=== PATIENT | male | born 1965 | race Caucasian/White ===

== ENCOUNTER 2018-06-16 21:35 | Emergency (ER) | END 2018-06-17 02:25 | disposition home or self-care (01) ==

== ENCOUNTER 2018-06-18 19:08 | Emergency (ER) | END 2018-06-19 01:33 | disposition short-term general hospital (02) ==

== ENCOUNTER 2018-06-26 13:51 | Emergency (ER) | END 2018-06-26 16:54 | disposition home or self-care (01) ==

== ENCOUNTER 2018-09-07 14:24 | Emergency (ER) | payer OTHER ==
[~2018-09-07] VITALS: Ht 177.8 cm; Wt 112.3 kg
[~2018-09-07 14:24] MED LIST: ALBU18HF INHALATION; ALPR0.5T6 PO; APIX5TAB PO; CALC-516 PO; DOCU-144 PO; FLUT1AER INHALATION; FURO-110 PO; GABA-526 PO; METH750T2 PO; METO-335 PO; MIRT15TA5 PO; NICO-546 TD; OMEP40CA6 PO; OXYC-431 PO; SIMV20TA PO
[2018-09-07 14:49] VITALS: Ht 177.8 cm; Wt 112.3 kg
[2018-09-07] MEDS ORDERED: HYDROmorphONE 2 MG/ML SYG IV STA (15:27)
[2018-09-07 18:46] VITALS: BP 150/92; PULSE 97; RESP 20
[2018-09-07] MEDS ORDERED: CEPH-443 PO (18:49)
[2018-09-07] MEDS ORDERED: FURO-109 PO (18:49)
--- NOTE | 2018-09-07 18:53 | ERD ---
ER Documentation Chief Complaint Chief Complaint Pt. BIBJarvis RA with c/o bilateral LE pain and swelling ROS All systems reviewed and are negative except as per history of present illness. Medications Home Meds Active Scripts Cephalexin* (Keflex*) 500 Mg Capsule, 500 MG PO QID for 10 Days, CAP Prov:ULI VILLA MD 09/07/18 Furosemide* (Lasix*) 40 Mg Tablet, 40 MG PO DAILY, #10 TAB Prov:ULI VILLA MD 09/07/18 Metoprolol Succinate* (Toprol XL*) 25 Mg Tab.sr.24h, 50 MG PO DAILY for 30 Days Prov:DOLORES CAMPBELL 08/23/18 Oxycodone HCl/Acetaminophen (Oxycodone-Acetaminophen 10-325) 1 Each Tablet, 1 EACH PO Q6 PRN for PAIN, #30 TAB Prov:DOLORES CAMPBELL 08/23/18 Apixaban* (Eliquis*) 5 Mg Tablet, 5 MG PO BID for 30 Days, TAB Prov:DOLORES CAMPBELL 08/23/18 Reported Medications Nicotine* (Nicotine* Patch) 21 mg/day Patch, 1 EACH TD DAILY, PATCH 08/15/18 Methocarbamol* (Methocarbamol*) 750 Mg Tablet, 750 MG PO TID, TAB 08/15/18 Fluticasone-Vilanterol (Breo Ellipta Inhaler) 100-25 Mcg/Actuation Aer.pow.ba, 1 PUFF INHALATION DAILY, #1 INHALER 08/15/18 Calcium Carbonate/Vitamin D3 ([place] SHE[place] CALCIUM TABLET) 1 Each Tablet, 1 EACH PO BID, TAB 06/26/18 Albuterol Sulfate* (Ventolin HFA*) 18 Gm Hfa.aer.ad, 2 PUFF INHALATION Q4H, #1 INHALER 06/26/18 Alprazolam* (Alprazolam*) 0.5 Mg Tablet, 0.5 MG PO Q8H PRN for ANXIETY, TAB 06/26/18 Mirtazapine* (Mirtazapine*) 15 Mg Tablet, 15 MG PO HS, TAB 06/26/18 Omeprazole* (Omeprazole*) 40 Mg Capsule.dr, 40 MG PO DAILY, #30 CAP 12/8/18 Gabapentin* (Gabapentin*) 600 Mg Tablet, 600 MG PO BID, #60 TAB 06/26/18 Docusate Sodium* (Colace*) 100 Mg Capsule, 100 MG PO BID, #60 CAP 06/18/18 Simvastatin* (Zocor*) 20 Mg Tablet, 20 MG PO QHS, #30 TAB 06/18/18 Discontinued Scripts Furosemide* (Lasix*) 20 Mg Tablet, 20 MG PO DAILY, #30 TAB Prov:DOLORES CAMPBELL 08/23/18 Allergies Allergies: Coded Allergies: ciprofloxacin (Verified Allergy, Unknown, 08/15/18) iodine (Verified Allergy, Unknown, 08/15/18) morphine (Unverified Allergy, Unknown, 08/15/18) shellfish derived (Verified Allergy, Unknown, RASH HIVES, 08/15/18) PMhx/Soc History of Surgery: Yes (Herniated lung Jun 03, Stomach surgery to remove adhesions) Anesthesia Reaction: No Hx Neurological Disorder: No Hx Respiratory Disorders: Yes (COPD, PNA) Hx Cardiac Disorders: No Hx Psychiatric Problems: Yes (Depression, Anxiety, PTSD) Hx Miscellaneous Medical Probl: No Hx Alcohol Use: No Hx Substance Use: Yes (coccaine) Hx Tobacco Use: Yes Smoking Status: Current every day smoker Physical Exam Vitals Vital Signs Date Temp Pulse Resp B/P (MAP) Pulse Ox O2 O2 Flow FiO2 Time Delivery Rate 09/07/18 99.0 97 20 150/92 97 Room Air 18:46 (111) 09/07/18 Nasal 2 15:43 Cannula 09/07/18 98.2 99 22 150/89 96 14:49 (109) Physical Exam Const: No acute distress Head: Atraumatic Eyes: Normal Conjunctiva ENT: Normal External Ears, Nose and Mouth. Neck: Full range of motion. No meningismus. Resp: Clear to auscultation bilaterally Cardio: Regular rate and rhythm, no murmurs Abd: Soft, non tender, non distended. Normal bowel sounds Skin: No petechiae or rashes Back: No midline or flank tenderness Ext: No cyanosis, or edema Neur: Awake and alert Psych: Normal Mood and Affect Results 24 hrs Current Medications Medications Dose Sig/Ana Start Time Status Last (Trade) Ordered Route PRN Stop Time Admin Dose Reason Admin 1 mg ONCE STAT 09/07/18 DC 09/07/18 Hydromorphone IV 15:27 18:12 HCl 09/07/18 15:29 (Dilaudid) Departure Diagnosis: Primary Impression: Bilateral lower extremity edema Additional Impression: Bilateral lower leg cellulitis Condition: Stable Patient Instructions: Cellulitis, Peripheral Edema, Bilateral ULI VILLA MD Sep 07, 2018 18:53
[2018-09-07] MEDS ORDERED: HYDR-4011 PO (19:04)
== END 2018-09-07 19:14 | disposition home or self-care (01) ==
LOC: E/R 14:24
DX: L03.115 Cellulitis of right lower limb (principal); R60.0 Localized edema; L03.114 Cellulitis of left upper limb; J44.9 Chronic obstructive pulmonary disease, unspecified; F17.210 Nicotine dependence, cigarettes, uncomplicated
CPT/HCPCS: 71045; 93005; 96374; J1170; Z7502

== ENCOUNTER 2018-09-29 01:32 | Inpatient (IN) | payer OTHER ==
[~2018-09-29] VITALS: Ht 180.3 cm; Wt 115.3 kg
[2018-09-29] VITALS (27 sets, daily range): BP systolic 102–128; BP diastolic 73–87; PULSE 70–85; RESP 18–20; Ht 180.3 cm; Wt 115.3 kg
[~2018-09-29 01:32] MED LIST changes: +CEPH-443 PO; +FURO-109 PO; -FURO-110 PO; +HYDR-4011 PO
[2018-09-29] MEDS ORDERED: PROPOFOL 200 MG INJ ONE (01:58)
[2018-09-29] MEDS ORDERED: PROPOFOL 100 ML IV STA (01:58)
[2018-09-29] MEDS ORDERED: SUCCINYLCHOLINE CHLORIDE 100 MG/5 ML SYG IV STA (01:58)
[2018-09-29] MEDS ORDERED: SUCCINYLCHOLINE CHLORIDE 100 MG/5 ML SYG IV ONE ×2 (01:58→04:00)
[2018-09-29] MEDS ORDERED: SOD CHLORIDE 0.9% 1,000 ML IV STA (01:58)
[2018-09-29] MEDS ORDERED: ETOMIDATE 20 MG INJ ONE (01:58)
[2018-09-29] MEDS ORDERED: ETOMIDATE 20 MG INJ IV STA (01:58)
[2018-09-29] MEDS ORDERED: VECURONIUM 100 MG in DEXTROSE 5% 100 ML IV ONE (03:44)
[2018-09-29] MEDS ORDERED: PRED10TA PO (05:25)
[2018-09-29] MEDS ORDERED: BENZ-5 PO (05:25)
[2018-09-29] MEDS ORDERED: LORA1TAB PO (05:25)
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
[2018-09-29] MEDS ORDERED: VECURONIUM 100 MG in DEXTROSE 5% 100 ML IV SCH (15:30)
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
[2018-09-29] MEDS ORDERED: FAMOTIDINE 20 MG INJ IV SCH (16:00)
[2018-09-29] MEDS: PROPOFOL 100 ML IV SCH ×4 (16:19→22:31)
[2018-09-29] MEDS ORDERED: ONDANSETRON 4 MG INJ IV PRN (17:00)
[2018-09-29] MEDS ORDERED: IPRATROPIUM (NEB) 0.5 MG/2.5 ML AMP NEB PRN (17:00)
[2018-09-29] MEDS ORDERED: NACL 0.9% 3 ML SYG IV SCH (17:00)
[2018-09-29] MEDS ORDERED: ALBUTEROL 0.083% (NEB) 2.5 MG/3 ML AMP NEB PRN (17:00)
[2018-09-29] MEDS ORDERED: ACETAMINOPHEN 650MG/20.3ML CUP PO PRN (17:00)
[2018-09-29] MEDS: THIAMINE 100 MG TAB NGT SCH (17:06)
[2018-09-29] MEDS: CYANOCOBALAMIN 1000 MCG INJ IM SCH (17:07)
[2018-09-29] MEDS: ENOXAPARIN 40 MG/0.4 ML SYG SC SCH (17:08)
[2018-09-29] MEDS: PIPER-TAZO 2.25 GM (PMX) 50 ML IVPB SCH ×2 (17:58→22:29)
[2018-09-29] MEDS: D5W-0.45 NACL + KCL 20 MEQ 1,000 ML IV SCH (19:03)
[2018-09-30] VITALS (29 sets, daily range): BP systolic 67–142; BP diastolic 36–103; PULSE 82–107; RESP 13–23
[2018-09-30] MEDS: PROPOFOL 100 ML IV SCH ×3 (01:04→07:13)
[2018-09-30] MEDS: D5W-0.45 NACL + KCL 20 MEQ 1,000 ML IV SCH ×3 (05:50→18:00)
[2018-09-30] MEDS: PIPER-TAZO 2.25 GM (PMX) 50 ML IVPB SCH (05:51)
[2018-09-30] MEDS ORDERED: PANTOPRAZOLE 40 MG INJ IV SCH (06:00)
--- NOTE | 2018-09-30 07:03 | EEG ---
EEG NOTE Report Details DATE OF TEST: 09/29/18 HISTORY: The patient is a 53-year-old M who presents with altered mental status. This EEG is requested to rule out nonconvulsive status epilepticus. SEDATION: None. CONDITIONS OF RECORDING: This EEG was recorded digitally on the M/A-COM machine, using the International 10-20 System of electrodes plus anterior temporals and [place]. STATES SAMPLED: Comatose. FINDINGS: The background is continuous and grossly symmetric. There is excess beta activity throughout. The normal [id number] frequency-amplitude gradient was absent. Photic stimulation does not elicit any definite driving responses or epileptiform discharges. Hyperventilation was not performed. No asymmetries, focal abnormalities or epileptiform discharges were seen. IMPRESSION: Abnormal electroencephalogram due to: excess beta activity COMMENT: Excess beta activity may be attributable to the use of medications, including but not limited to benzodiazepines or barbiturates. ADDIS PAYNE Sep 30, 2018 07:03
[2018-09-30] MEDS: CYANOCOBALAMIN 1000 MCG INJ IM SCH (08:32)
[2018-09-30] MEDS: THIAMINE 100 MG TAB NGT SCH (08:32)
[2018-09-30] MEDS: ENOXAPARIN 40 MG/0.4 ML SYG SC SCH (08:33)
[2018-09-30] MEDS ORDERED: ENOXAPARIN 40 MG/0.4 ML SYG SC SCH (09:00)
--- NOTE | 2018-09-30 09:40 | CONS ---
Assessment/Plan Assessment/Plan Assessment/Plan (Daily) Chest x-ray was reviewed from today which is essentially unremarkable. Ventilator setting; AC of 18, tidal volume 500, PEEP of 5, 30% FiO2. Patient is currently on propofol 50 mics per kilogram per minute. Assessment and recommendations; 1. Patient admitted with respiratory failure due to multidrug overdose with amphetamines cocaine and benzodiazepines. Patient has remained hemodynamically stable. 2. Prior history of laparotomy as well as lower extremity cellulitis. 3. Chronic pain syndrome. 4. COPD. 5. Currently there is no evidence to indicate any ongoing infective process. Hold propofol. Give the patient to CPAP trial. If the patient meets weaning criteria he will be extubated. Meanwhile I would recommend stopping Zosyn. Repeat chest x-ray 24 hours. 35 minutes of critical care time was spent evaluating the patient. Consultation Date/Type/Reason Admit Date/Time Sep 29, 2018 at 04:27 Initial Consult Date 09/29/18 Type of Consult Pulmonary/critical care Patient is a 52-year-old male who was [facility] with altered mental status. Patient apparently took overdose of multiple medications including amphetamines benzodiazepines and cocaine. Patient was intubated and transferred to ICU. By the time I saw the patient over here the patient is orally intubated sedated and paralyzed. Patient has remained hemodynamically stable and did not require CPR. Past medical history; 1. COPD. 2. History of lower extremity cellulitis. 3. History of laparotomy. Medications; reviewed. Allergies; as outlined above. Social history; positive for tobacco abuse, and multiple drug abuse. Family history, occupational history not available. Review of system; unable to be obtained. General exam; middle-aged male, appears overweight, orally intubated, sedated and paralyzed. Requesting Provider: DOLORES CAMPEBLL Date/Time of Note DATE: 09/30/18 TIME: 09:37 24 HR Interval Summary Free Text/Dictation Patient's condition is critical but stable. Despite being on propofol drip patient is completely awake and alert. Has remained hemodynamically stable. General exam; middle-aged male, orally intubated, awake and alert. Currently no distress. Appropriately communicative with hand gestures. Exam/Review of Systems Exam Vitals Vital Signs Date Temp Pulse Resp B/P (MAP) Pulse Ox O2 O2 Flow FiO2 Time Delivery Rate 09/30/18 94 19 142/81 99 Mechanical 09:00 (101) Ventilator 09/30/18 35 07:47 09/30/18 98.3 04:00 Intake and Output 09/29/18 09/29/18 09/30/18 1515:00 23:00 07:00 IntakeIntake Total 102 ml 730.18 ml 892.13 ml OutputOutput Total 450 ml 1150 ml 995 ml BalanceBalance -348 ml -419.82 ml -102.87 ml Exam HEENT exam; supple neck, no JVD. No lymphadenopathy. Midline trachea. No thyromegaly. Orally intubated. Patient does have carious teeth. Pupils are midsize bilaterally. Chest exam; diminished but clear breath sounds. S1-S2 audible, no murmurs. Regular rhythm. Abdomen exam; soft, nontender. Nondistended. No organomegaly. Bowel sounds audible. There is a well-healed laparotomy scar. Extremity exam; no peripheral edema. Pulses 1+. IOS ARCHITECT exam; no focal deficit. Results Result Diagram: 09/30/18 0430 09/30/18 0430 Results 24hrs Laboratory Tests Test 09/30/18 04:30 White Blood Count 11.1 H Red Blood Count 4.74 Hemoglobin 13.1 L Hematocrit 41.9 L Mean Corpuscular Volume 88.4 Mean Corpuscular Hemoglobin 27.6 L Mean Corpuscular Hemoglobin Concent 31.3 L Red Cell Distribution Width 15.3 H Platelet Count 255 Mean Platelet Volume 9.7 Immature Granulocytes % 0.600 H Neutrophils % 76.6 Lymphocytes % 11.2 L Monocytes % 7.7 Eosinophils % 3.5 Basophils % 0.4 Nucleated Red Blood Cells % 0.0 Immature Granulocytes # 0.070 H Neutrophils # 8.5 H Lymphocytes # 1.2 Monocytes # 0.9 Eosinophils # 0.4 Basophils # 0.0 Nucleated Red Blood Cells # 0.0 Sodium Level 138 Potassium Level 3.4 L Chloride Level 104 Carbon Dioxide Level 29 Anion Gap 5 Blood Urea Nitrogen 5 L Creatinine 0.76 Est Glomerular Filtrat Rate mL/min > 60 Glucose Level 106 Calcium Level 8.8 Magnesium Level 2.3 Medications Medication Current Medications Propofol 100 ml @ 3.459 mls/ hr Q12H IV Last administered on 09/30/18at 07:13; Admin Dose 34.59 MLS/HR; Start 09/29/18 at 15:30 Vecuronium [place] 100 mg/ Dextrose 100 ml @ 5.77 mls/hr TITRATE IV ; Start 09/29/18 at 15:30 Enoxaparin Sodium (Lovenox) 40 mg DAILY SC Last administered on 09/30/18at 08:33; Admin Dose 40 MG; Start 09/29/18 at 16:00 Lorazepam (Ativan) 2 mg Q6H PRN IV SEIZURES; Start 09/29/18 at 16:30 Cyanocobalamin (Vitamin B12 Inj) 1,000 mcg DAILY IM Last administered on 09/30/18 08:32; Admin Dose 1,000 MCG; Start 09/29/18 at 16:30 Thiamine HCl (Vitamin B1) 100 mg DAILY NGT Last administered on 09/30/18 08:32; Admin Dose 100 MG; Start 09/29/18 at 16:30 Potassium Chloride/Dextrose/ Sod Cl 1,000 ml @ 100 mls/hr Q10H IV Last administered on 09/30/18at 05:50; Admin Dose 100 MLS/HR; Start 09/29/18 at 16:44 IV Flush (NS 3 ml) 3 ml PER PROTOCOL IV ; Start 09/29/18 at 17:00 Ondansetron HCl (Zofran Inj) 4 mg Q6H PRN IV NAUSEA AND/OR VOMITING; Start 09/29/18 at 17:00 Albuterol (Proventil 0.083% (Neb)) 2.5 mg Q2H RESP THERAPY PRN NEB SHORTNESS OF BREATH; Start 09/29/18 at 17:00 Ipratropium [place] (Atrovent 0.02% (Neb)) 0.5 mg Q2H RESP THERAPY PRN NEB SHORTNESS OF BREATH; Start 09/29/18 at 17:00 Acetaminophen (Tylenol Liquid) 650 mg Q6H PRN PO PAIN LEVEL 1-3 OR FEVER Last administered on 09/30/18 08:32; Admin Dose 650 MG; Start 09/29/18 at 17:00 Piperacillin Sod/ Tazobactam Sod 50 ml @ 100 mls/hr Q8 IVPB Last administered on 09/30/18at 05:51; Admin Dose 100 MLS/HR; Start 09/29/18 at 17:00 Famotidine (Pepcid Iv) 20 mg BID IV ; Start 09/30/18 at 21:00 GERRY HART Sep 30, 2018 09:40
[2018-09-30] MEDS: HYDROmorphONE 0.5 MG/0.5 ML SYG IV PRN ×4 (11:12→21:23)
--- NOTE | 2018-09-30 14:37 | CONS ---
Assessment/Plan Assessment/Plan Hospital Course 53 M c/ reported Hx of COPD and abdominal surgeries..among other comorbidities, who presents for evaluation of ams...for which neurology is consulted.. There is reported suspicion for intentional drug overdose..However, he denies this.. UDS is notable for recent recreational substance use..a likely contributor.. B12 is 195 Seizure is possible, especially given his reported Hx of the same; EEG is, though, without ongoing epileptiform activity A focal STOCK CHECKER process is, too, not yet excluded.. Head CT is unrevealing.. 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 off paralytics s/p EEG No complaints Exam Vital Signs Vitals Vital Signs Date Temp Pulse Resp B/P (MAP) Pulse Ox O2 O2 Flow FiO2 Time Delivery Rate 09/30/18 90 12:00 09/30/18 96 3.0 09:30 09/30/18 19 35 09:15 09/30/18 142/81 Mechanical 09:00 (101) Ventilator 09/30/18 98.3 04:00 Intake and Output 09/29/18 09/29/18 09/30/18 1515:00 23:00 07:00 IntakeIntake Total 102 ml 730.18 ml 892.13 ml OutputOutput Total 450 ml 1150 ml 1045 ml BalanceBalance -348 ml -419.82 ml -152.87 ml Exam PE: Gen Appearance: No Apparent Distress HEENT: Normocephalic Abdomen: Soft Extremities: Dry NE: The patient was alert and oriented. Language was normal. Fund of knowledge was normal. Pupils were equal and reactive to light. There was no afferent pupillary defect. Visual laird were normal. Funduscopic examination was limited. Extra-ocular movements were full. Ptosis was absent. There was no nystagmus. Facial sensation was normal. Face was symmetric with normal strength. Hearing was intact. Palate movements were normal. Neck strength was normal. There was normal tongue bulk and speed of movement. Tone was normal. Muscle bulk was normal. I did not see fasciculations. Arms and legs were strong. Vibration sensation was normal. Temperature and pinprick sensation was normal. Rapid alternating movements were normal. There was no dysmetria. There was no intention tremor. Gait was deferred due to bedrest. Arm and leg reflexes were 2+ and symmetric. Olivarez's sign was absent. Plantar responses were flexor. ADDIS PAYNE Sep 30, 2018 14:37
--- NOTE | 2018-09-30 16:12 | PN ---
Date/Time of Note Date/Time of Note DATE: 09/30/18 TIME: 16:09 Assessment/Plan VTE Prophylaxis Risk score (from Ns)>0 risk: 3 SCD applied (from Nsg): Yes Pharmacological prophylaxis: LMWH Lines/Catheters IV Catheter Type (from Nrsg): Central Line Central line still needed: Yes Urinary Cath still in place: No Reason Cath still needed: urinary retention Assessment/Plan Hospital Course Patient is extubated, awake alert, admits to taking amphetamines and cocaine for recreation, denies any suicidal ideation. Pending MRI of the brain. Assessment/Plan -Polysubstance overdose, continue IV fluids. Pending psychiatric evaluation. -Acute respiratory failure secondary to #1, resolved. Dr. Small is following in pulmonology consultation. -Altered mental status secondary to #1. Dr. Currie is following in neurology con sultation. -COPD -Tobacco dependence -Chronic pain Critical care time spent is 30 minutes. Further recommendations based on clinical course. Plan of care discussed with Dr. Bloom. Result Diagram: 09/30/18 0430 09/30/18 0430 Results 24hrs Laboratory Tests Test 09/30/18 04:30 White Blood Count 11.1 H Red Blood Count 4.74 Hemoglobin 13.1 L Hematocrit 41.9 L Mean Corpuscular Volume 88.4 Mean Corpuscular Hemoglobin 27.6 L Mean Corpuscular Hemoglobin Concent 31.3 L Red Cell Distribution Width 15.3 H Platelet Count 255 Mean Platelet Volume 9.7 Immature Granulocytes % 0.600 H Neutrophils % 76.6 Lymphocytes % 11.2 L Monocytes % 7.7 Eosinophils % 3.5 Basophils % 0.4 Nucleated Red Blood Cells % 0.0 Immature Granulocytes # 0.070 H Neutrophils # 8.5 H Lymphocytes # 1.2 Monocytes # 0.9 Eosinophils # 0.4 Basophils # 0.0 Nucleated Red Blood Cells # 0.0 Sodium Level 138 Potassium Level 3.4 L Chloride Level 104 Carbon Dioxide Level 29 Anion Gap 5 Blood Urea Nitrogen 5 L Creatinine 0.76 Est Glomerular Filtrat Rate mL/min > 60 Glucose Level 106 Calcium Level 8.8 Magnesium Level 2.3 Exam/Review of Systems Exam Vitals Vital Signs Date Temp Pulse Resp B/P (MAP) Pulse Ox O2 O2 Flow FiO2 Time Delivery Rate 09/30/18 90 12:00 09/30/18 96 3.0 09:30 09/30/18 19 35 09:15 09/30/18 142/81 Mechanical 09:00 (101) Ventilator 09/30/18 98.3 04:00 Intake and Output 09/29/18 09/29/18 09/30/18 1414:59 22:59 06:59 IntakeIntake Total 68 ml 664.18 ml 992.13 ml OutputOutput Total 300 ml 1150 ml 1145 ml BalanceBalance -232 ml -485.82 ml -152.87 ml Constitutional: alert, oriented Head: normocephalic Neck: supple Respiratory: clear to auscultation Cardiovascular: regular rate and rhythm Gastrointestinal: soft, non-tender Extremities: normal pulses Neurological: nl mental status Skin: nl turgor Results Results 24hrs Laboratory Tests Test 09/30/18 04:30 White Blood Count 11.1 H Red Blood Count 4.74 Hemoglobin 13.1 L Hematocrit 41.9 L Mean Corpuscular Volume 88.4 Mean Corpuscular Hemoglobin 27.6 L Mean Corpuscular Hemoglobin Concent 31.3 L Red Cell Distribution Width 15.3 H Platelet Count 255 Mean Platelet Volume 9.7 Immature Granulocytes % 0.600 H Neutrophils % 76.6 Lymphocytes % 11.2 L Monocytes % 7.7 Eosinophils % 3.5 Basophils % 0.4 Nucleated Red Blood Cells % 0.0 Immature Granulocytes # 0.070 H Neutrophils # 8.5 H Lymphocytes # 1.2 Monocytes # 0.9 Eosinophils # 0.4 Basophils # 0.0 Nucleated Red Blood Cells # 0.0 Sodium Level 138 Potassium Level 3.4 L Chloride Level 104 Carbon Dioxide Level 29 Anion Gap 5 Blood Urea Nitrogen 5 L Creatinine 0.76 Est Glomerular Filtrat Rate mL/min > 60 Glucose Level 106 Calcium Level 8.8 Magnesium Level 2.3 Medications Medication Current Medications Propofol 100 ml @ 3.459 mls/ hr Q12H IV Last administered on 09/30/18at 07:13; Admin Dose 34.59 MLS/HR; Start 09/29/18 at 15:30 Vecuronium Richardson 100 mg/ Dextrose 100 ml @ 5.77 mls/hr TITRATE IV ; Start 09/29/18 at 15:30 Enoxaparin Sodium (Lovenox) 40 mg DAILY SC Last administered on 09/30/18at 08:33; Admin Dose 40 MG; Start 09/29/18 at 16:00 Lorazepam (Ativan) 2 mg Q6H PRN IV SEIZURES; Start 09/29/18 at 16:30 Cyanocobalamin (Vitamin B12 Inj) 1,000 mcg DAILY IM Last administered on 09/30/18 08:32; Admin Dose 1,000 MCG; Start 09/29/18 at 16:30 Thiamine HCl (Vitamin B1) 100 mg DAILY NGT Last administered on 09/30/18 08:32; Admin Dose 100 MG; Start 09/29/18 at 16:30 Potassium Chloride/Dextrose/ Sod Cl 1,000 ml @ 100 mls/hr Q10H IV Last admi nistered on 09/30/18 05:50; Admin Dose 100 MLS/HR; Start 09/29/18 at 16:44 IV Flush (NS 3 ml) 3 ml PER PROTOCOL IV ; Start 09/29/18 at 17:00 Ondansetron HCl (Zofran Inj) 4 mg Q6H PRN IV NAUSEA AND/OR VOMITING; Start 09/29/18 at 17:00 Albuterol (Proventil 0.083% (Neb)) 2.5 mg Q2H RESP THERAPY PRN NEB SHORTNESS OF BREATH; Start 09/29/18 at 17:00 Ipratropium Richardson (Atrovent 0.02% (Neb)) 0.5 mg Q2H RESP THERAPY PRN NEB SHORTNESS OF BREATH; Start 09/29/18 at 17:00 Acetaminophen (Tylenol Liquid) 650 mg Q6H PRN PO PAIN LEVEL 1-3 OR FEVER Last administered on 09/30/18 08:32; Admin Dose 650 MG; Start 09/29/18 at 17:00 Famotidine (Pepcid Iv) 20 mg BID IV ; Start 09/30/18 at 21:00 Hydromorphone HCl (Dilaudid) 0.5 mg Q3H PRN IV SEVERE PAIN LEVEL 7-10 Last administered on 09/30/18 15:09; Admin Dose 0.5 MG; Start 09/30/18 at 10:00 DOLORES CAMPBELL Sep 30, 2018 16:12
[2018-09-30] MEDS ORDERED: LORAZEPAM 1 MG TAB PO PRN (17:00)
[2018-09-30] MEDS ORDERED: POTASSIUM CHLORIDE 20 MEQ POWDER FOR ORAL SOLN GTB ONE (17:00)
[2018-09-30] MEDS ORDERED: GABAPENTIN 300 MG CAP PO SCH (21:00)
[2018-09-30] MEDS ORDERED: DOCUSATE SODIUM 100 MG CAP PO SCH (21:00)
[2018-09-30] MEDS ORDERED: FAMOTIDINE 20 MG INJ IV SCH (21:00)
[2018-09-30] MEDS: LORAZEPAM 2 MG INJ IV PRN (22:24)
[2018-10-01] VITALS (7 sets, daily range): BP systolic 123–153; BP diastolic 72–104; PULSE 87–109; RESP 18–19
[2018-10-01] MEDS: HYDROmorphONE 0.5 MG/0.5 ML SYG IV PRN ×2 (01:25→05:20)
[2018-10-01] MEDS: LORAZEPAM 2 MG INJ IV PRN (06:43)
[2018-10-01] MEDS ORDERED: FUROSEMIDE 40 MG TAB PO SCH (09:00)
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
--- NOTE | 2018-10-01 23:00 | CONS ---
Assessment/Plan Assessment/Plan Hospital Course 53 M c/ reported Hx of COPD and abdominal surgeries..among other comorbidities, who presents for evaluation of ams...for which neurology is consulted.. There is reported suspicion for intentional drug overdose..However, he denies this.. UDS is notable for recent recreational substance use..a likely contributor.. B12 is 195 Seizure is possible, especially given his reported Hx of the same; EEG is, though, without ongoing epileptiform activity A focal TRANSPORTATION MODELER process is, too, not yet excluded.. MRI brain is unrevealing.. P: Await B1 level; Cont empiric supplementation in the shortterm Cont B12 supplementation [place] as necessary Limit sedating medications where possible Filleter re: drug cessation Other management per primary Will follow clinically Consultation Date/Type/Reason Admit Date/Time Sep 29, 2018 at 04:27 Type of Consult Neurology Requesting Provider: DOLORES CAMPBELL Date/Time of Note DATE: 10/01/18 TIME: 13:55 24 HR Interval Summary Free Text/Dictation Continues acute care. Exam Vital Signs Vitals Vital Signs Date Temp Pulse Resp B/P (MAP) Pulse Ox O2 O2 Flow FiO2 Time Delivery Rate 10/01/18 101 08:17 10/01/18 98.1 19 134/74 96 07:30 (94) 10/01/18 Nasal 2.0 07:30 Cannula 09/30/18 35 09:15 Intake and Output 09/30/18 09/30/18 10/01/18 1515:00 23:00 07:00 IntakeIntake Total 800 ml 1360 ml 700 ml OutputOutput Total 280 ml 255 ml 360 ml BalanceBalance 520 ml 1105 ml 340 ml Exam PE: Gen Appearance: No Apparent Distress HEENT: Normocephalic Cardiovascular: regular rate Abdomen: Soft Extremities: Dry NE: The patient was alert and oriented. Language was normal. Fund of knowledge was normal. Pupils were equal and reactive to light. There was no afferent pupillary defect. Visual laird were normal. Funduscopic examination was limited. Extra-ocular movements were full. Ptosis was absent. There was no nystagmus. Facial sensation was normal. Face was symmetric with normal strength. Hearing was intact. Palate movements were normal. Neck strength was normal. There was normal tongue bulk and speed of movement. Tone was normal. Muscle bulk was normal. I did not see fasciculations. Arms and legs were strong. Vibration sensation was normal. Temperature and pinprick sensation was normal. Rapid alternating movements were normal. There was no dysmetria. There was no intention tremor. Gait was deferred due to bedrest. Arm and leg reflexes were 2+ and symmetric. Olivarez's sign was absent. Plantar responses were flexor. STACY LEIVA NP Oct 01, 2018 23:00 ADDIS PAYNE Oct 02, 2018 07:08
--- NOTE | 2018-10-04 04:12 | ERD ---
ER Documentation Chief Complaint Chief Complaint BIB RA39,from [facility],suspected overdose,Narcan given HPI This is a 53-year-old male brought in from rescue [facility] from longterm facility with suspected overdose. Patient was given Narcan on route. Upon arrival I evaluated the patient and noted that he is obtunded and not protecting his airway decision was made to intubate the patient immediately. History is obvious PE limited secondary only to EMS run sheet ROS All systems reviewed and are negative except as per history of present illness. Medications Home Meds Active Scripts Hydrocodone/Acetaminophen ([place] 5-325 Tablet) 1 Each Tablet, 1 TAB PO Q6H PRN for PAIN, #7 TAB Prov:ULI VILLA MD 09/07/18 Cephalexin* (Keflex*) 500 Mg Capsule, 500 MG PO QID for 10 Days, CAP Prov:ULI VILLA MD 09/07/18 Furosemide* (Lasix*) 40 Mg Tablet, 40 MG PO DAILY, #10 TAB Prov:ULI VILLA MD 09/07/18 Metoprolol Succinate* (Toprol XL*) 25 Mg Tab.sr.24h, 50 MG PO DAILY for 30 Days Prov:DOLORES CAMPBELL 08/23/18 Oxycodone HCl/Acetaminophen (Oxycodone-Acetaminophen 10-325) 1 Each Tablet, 1 EACH PO Q6 PRN for PAIN, #30 TAB Prov:DOLORES CAMPBELL 08/23/18 Apixaban* (Eliquis*) 5 Mg Tablet, 5 MG PO BID for 30 Days, TAB Prov:DOLORES CAMPBELL 08/23/18 Reported Medications Lorazepam* (Lorazepam*) 1 Mg Tablet, 1 MG PO BID PRN for ANXIETY, #30 TAB 09/29/18 Benzonatate* (Benzonatate*) 100 Mg Capsule, 100 MG PO TID PRN for COUGH, CAP 09/29/18 Prednisone* (Prednisone*) 10 Mg Tab, 40 MG PO DAILY, TAB 09/29/18 Nicotine* (Nicotine* Patch) 21 mg/day Patch, 1 EACH TD DAILY, PATCH 08/15/18 Methocarbamol* (Methocarbamol*) 750 Mg Tablet, 750 MG PO TID, TAB 08/15/18 Fluticasone-Vilanterol (Breo Ellipta Inhaler) 100-25 Mcg/Actuation Aer.pow.ba, 1 PUFF INHALATION DAILY, #1 INHALER 08/15/18 Calcium Carbonate/Vitamin D3 (OYSTER SHELL CALCIUM TABLET) 1 Each Tablet, 1 EACH PO BID, TAB 06/26/18 Albuterol Sulfate* (Ventolin HFA*) 18 Gm Hfa.aer.ad, 2 PUFF INHALATION Q4H, #1 I NHALER 06/26/18 Alprazolam* (Alprazolam*) 0.5 Mg Tablet, 0.5 MG PO Q8H PRN for ANXIETY, TAB 06/26/18 Mirtazapine* (Mirtazapine*) 15 Mg Tablet, 15 MG PO HS, TAB 06/26/18 Omeprazole* (Omeprazole*) 40 Mg Capsule.dr, 40 MG PO DAILY, #30 CAP 06/26/18 Gabapentin* (Gabapentin*) 600 Mg Tablet, 600 MG PO BID, #60 TAB 06/26/18 Docusate Sodium* (Colace*) 100 Mg Capsule, 100 MG PO BID, #60 CAP 06/18/18 Simvastatin* (Zocor*) 20 Mg Tablet, 20 MG PO QHS, #30 TAB 06/18/18 Allergies Allergies: Coded Allergies: ciprofloxacin (Unverified Allergy, Unknown, 09/29/18) iodine (Unverified Allergy, Unknown, 09/29/18) morphine (Unverified Allergy, Unknown, 08/15/18) shellfish derived (Unverified Allergy, Unknown, RASH HIVES, 09/29/18) PMhx/Soc History of Surgery: Yes (RIGHT KNEE SX 20+ YRS AGO) Anesthesia Reaction: No Hx Neurological Disorder: No Hx Respiratory Disorders: Yes (COPD EMPHYSEMA ) Hx Cardiac Disorders: Yes (HTN HLD ) Hx Psychiatric Problems: Yes Hx Miscellaneous Medical Probl: No (OBESITY) Hx Alcohol Use: No Hx Substance Use: Yes Hx Tobacco Use: Yes Smoking Status: Heavy tobacco smoker Physical Exam Physical Exam Const: No acute distress Head: Atraumatic Eyes: Normal Conjunctiva ENT: Normal External Ears, Nose and Mouth. Neck: Full range of motion. No meningismus. Resp: Clear to auscultation bilaterally, poor respiratory effort Cardio: Regular rate and rhythm, no murmurs Abd: Soft, non tender, non distended. Normal bowel sounds Skin: No petechiae or rashes Back: No midline or flank tenderness Ext: No cyanosis, or edema Neur: Obtunded Psych: Obtunded Result Diagram: 10/01/1862610/01/18626 Results 24 hrs Laboratory Tests Test 09/29/18 01:58 09/29/18 03:05 09/29/18 03:07 09/29/18 03:24 Blood Gas Blood arterial Specimen Source Arterial Blood 09/29/2018 2:50: Date Drawn 40 AM Arterial Blood 7.330 pH (Temp corrected ) Arterial Blood 45.3 mmhg pCO2 (Temp correct) Arterial Blood 334.9 mmHG pO2 (Temp corrected ) Arterial Blood 23.3 mmol/L HCO3 Arterial Blood -2.8 mmol/L Base Excess Arterial Blood 99.4 mmHG Oxygen Saturati on [place] Test ACCEPTAB Arterial Blood Right Brachial Gas Puncture Site Arterial 3.3 % Blood Carboxyhe moglobin Arterial Blood 0.3 % Methemoglobin Blood Gas A-a 332.8 mmHg O2 Differential Oxyhemoglobin 95.8 % Percent Blood Gas 37.0 C Temperature Blood Gas 18.0 Respiration Rate Blood Gas 25 Actual Respiration Rat e Blood Gas VENT - AC Modality FiO2 100.0 % Blood Gas Tidal 500.0 mL Volume Blood Gas Low 5.0 cmH2O PEEP Setting Blood Gas 20.0 Inspiratory Pressure Blood Gas Notified Whom Blood Gas 09/29/2018 3:06: Notified Time 22 AM Urine Color YELLOW Urine Clarity SLIGHTLY CLOUDY Urine pH 5.0 Urine Specific 1.029 [place] Urine Ketones TRACE mg/dL Urine Nitrite NEGATIVE mg/dL Urine Bilirubin NEGATIVE mg/dL Urine 1+ mg/dL Urobilinogen Urine Leukocyte NEGATIVE Monica/ul Esterase Urine 0 /HPF Microscopic RBC Urine 2 /HPF Microscopic WBC Urine Mucus FEW /HPF Urine NEGATIVE mg/dL Hemoglobin Urine Glucose NEGATIVE mg/dL Urine Total 1+ mg/dl Protein Vitamin B12 195 pg/ml Level Urine Opiates NEGATIVE Screen Urine NEGATIVE Barbiturates Urine POSITIVE Amphetamines Screen Urine POSITIVE Benzodiazepines Screen Urine Cocaine POSITIVE Screen Urine NEGATIVE Cannabinoids White Blood 12.6 10^3/ul Count Red Blood Count 4.83 10^6/ul Hemoglobin 13.4 g/dl Hematocrit 41.8 % Mean 86.5 fl Corpuscular Volume Mean 27.7 pg Corpuscular Hemoglobin Mean 32.1 g/dl Corpuscular Hemoglobin Conc ent Red Cell 15.1 % Distribution Width Platelet Count 303 10^3/UL Mean Platelet 9.0 fl Volume Immature 0.700 % Granulocytes % Neutrophils % 79.1 % Lymphocytes % 10.5 % Monocytes % 7.5 % Eosinophils % 1.8 % Basophils % 0.4 % Nucleated Red 0.0 /100WBC Blood Cells % Immature 0.090 10^3/ul Granulocytes # Neutrophils # 10.0 10^3/ul Lymphocytes # 1.3 10^3/ul Monocytes # 1.0 10^3/ul Eosinophils # 0.2 10^3/ul Basophils # 0.1 10^3/ul Nucleated Red 0.0 10^3/ul Blood Cells # Sodium Level 141 mmol/L Potassium Level 3.6 mmol/L Chloride Level 104 mmol/L Carbon Dioxide 25 mmol/L Level Anion Gap 12 Blood Urea 11 mg/dl Nitrogen Creatinine 0.94 mg/dl Est Glomerular > 60 mL/min Filtrat Rate mL/min Glucose Level 115 mg/dl Calcium Level 9.2 mg/dl Total Bilirubin 1.0 mg/dl Direct 0.00 mg/dl Bilirubin Indirect 1.0 mg/dl Bilirubin Aspartate Amino 32 IU/L Transf (AST/SGO T) Alanine 30 IU/L Aminotransferas e (ALT/SGPT) Alkaline 79 IU/L Phosphatase Ammonia 11 umol/l Troponin I < 0.012 ng/ml Total Protein 6.8 g/dl Albumin 3.9 g/dl Globulin 2.90 g/dl Albumin/Globuli 1.34 n Ratio Free Thyroxine 2.68 ug/ml Index Thyroxine (T4) 6.3 ug/dl Triiodothyronin 42.5 % e (T3) Uptake Salicylates < 1.0 mg/dl Level Acetaminophen < 10.0 ug/ml Level Ethyl Alcohol < 10.0 mg/dl Level POC Venous 2.4 mmol/L Lactate Current Medications Medications Dose Sig/Ana Start Time Status Last (Trade) Ordered Route PRN Stop Time Admin Dose Reason Admin Sodium 1,000 ml @ Q1H STAT 09/29/18 DC 09/29/18 Chloride 1,000 mls/hr IV 01:58 02:39 09/29/18 02:57 100 mg ONCE STAT 09/29/18 DC Succinylcholi IV 01:58 ne Chloride 09/29/18 02:01 (Anectine Syringe) Etomidate 20 mg ONCE STAT 09/29/18 DC (Amidate) IV 01:58 09/29/18 02:01 Propofol 100 ml @ ONCE STAT 09/29/18 DC 09/29/18 3.068 mls/ IV 01:58 02:09 hr 09/29/18 15:37 Vecuronium 100 ml @ [id number] 09/29/18 DC 09/29/18 [place] 100 7.77 mls/hr ONCE IV 03:44 04:11 mg/ Dextrose 09/29/18 15:37 100 mg ONCE ONCE 09/29/18 DC Succinylcholi IV 04:00 ne Chloride 09/29/18 04:01 (Anectine Syringe) Procedures/MDM Emergency department course: Patient seen and evaluated ER MD. Immediately set up for intubation. Placed on respirator. Central line placed. Fluids started. Stat head CT stat chest x-ray. Diagnostic data: Chest X-ray 1V Interpreted by me: Soft Tissue: No acute abnormalities Bones: No acute abnormalities Mediastinum/Cardiac Silhouette/Lungs: ET tube and central line in good position. No pneumothorax EKG: Rate/Rhythm: [Normal Sinus Rhythm] QRS, ST, T-waves: [No changes consistent w/ acute ischemia] Impression: [No evidence of ischemia or arrhythmia] Central Line Placement by me: Patient consented, sterilely draped, full prep, gown, glove, mask, time out performed. Anesthesia: 1% lidocaine locally Location: Left subclavian Device: Multiple lumen Technique: Seldinger technique. Secured with suture. Results: Venous return from all ports with easy saline flush. No complications. [Chest X-ray 1V Interpreted by me: Central line in SVC, Normal soft tissue, No evidence of pneumothorax.] Endotracheal Intubation by me: Pre assessment performed. See preceding note for details. Pre-oxygenation performed with 100% oxygen RSI: Performed w/o complication or hypoxic events. Medications as ordered. Blade: [Mac 4] ET Tube: 7.5 cm Depth: 23 cm at the lip Intubation confirmed by colorimetric CO2, equal breath sounds, quiet over the stomach. Chest X-ray 1V Interpreted by me: 2 cm above the mary ann ET tube. Normal soft tissue, No pneumothorax. Critical Care: Time: 45 minutes, independent of any separately billable procedural time Treatments/Evaluations: Close monitoring and treatment of unstable vital signs, cardiorespiratory, and neurologic status, while maintaining tight balance of fluid, respiratory, and cardiac interventions. Medical decision making: This is a 53-year-old male comes in with acute respiratory failure secondary to likely OD. Patient is clinically stable at this time and has been intubated to protect his airway. He does have an elevated lactic acid of 2.4, however I do not feel that this is indicative of sepsis and is likely secondary to respiratory failure and hypoxic lactic acidosis. I will not be starting this patient on sepsis protocol. Dr. Bard fonseca was made aware of admission to intensive care unit for likely overdose and toxic encephalopathy Departure Diagnosis: Primary Impression: Respiratory failure Chronicity: unspecified Respiratory failure complication: unspecified whether with hypoxia or hypercapnia Qualified Codes: J96.90 - Respiratory failure, unspecified, unspecified whether with hypoxia or hypercapnia Additional Impression: Acute drug overdose Encounter type: initial encounter Injury intent: undetermined intent Qualified Codes: T50.904A - Poisoning by unspecified drugs, medicaments and biological substances, undetermined, initial encounter Condition: Critical MAYRA VELA Oct 04, 2018 04:12
== END 2018-10-01 09:30 | disposition left against medical advice (07) | DRG 917 ==
LOC: E/R 01:32 → ICU 04:27 → TEL 10-01 02:11
PROVIDERS: ADMIT Internal Medicine; ATTEND Internal Medicine
PROC: 5A1945Z Respiratory Ventilation, 24-96 Consecutive Hours (ICD-10-PCS; principal; 2018-09-29)
PROC: 0BH17EZ Insertion of Endotracheal Airway into Trachea, Via Natural or Artificial Opening (ICD-10-PCS; 2018-09-29)
PROC: 02HV33Z Insertion of Infusion Device into Superior Vena Cava, Percutaneous Approach (ICD-10-PCS; 2018-09-29)
DX: T40.5X1A Poisoning by cocaine, accidental (unintentional), initial encounter (principal); J96.00 Acute respiratory failure, unspecified whether with hypoxia or hypercapnia; G92 Toxic encephalopathy; T43.621A Poisoning by amphetamines, accidental (unintentional), initial encounter; E66.9 Obesity, unspecified; F17.200 Nicotine dependence, unspecified, uncomplicated; G89.4 Chronic pain syndrome; J44.9 Chronic obstructive pulmonary disease, unspecified; Y92.099 Unspecified place in other non-institutional residence as the place of occurrence of the external cause; Z68.35 Body mass index [BMI] 35.0-35.9, adult; Z79.01 Long term (current) use of anticoagulants; Z79.891 Long term (current) use of opiate analgesic; Z86.718 Personal history of other venous thrombosis and embolism
CPT/HCPCS: 31500; 36600; 70450; 70553; 71045; 74018; 80048; 80053; 80307; 81001; 82140; 82607; 82803; 83605; 83735; 84425; 84436; 84479; 84484; 85025; 87081; 87086; 93005; 94002; 94003; 94770; 95819; C1751; C9113; J1170; J1650; J2060; J2543; J3420; J3480; J7030

== ENCOUNTER 2018-10-15 01:05 | Emergency (ER) | payer OTHER ==
[~2018-10-15] VITALS: Ht 177.8 cm; Wt 114.3 kg
[~2018-10-15 01:05] MED LIST changes: +BENZ-5 PO; +LORA1TAB PO; +PRED10TA PO
[2018-10-15 01:12] VITALS: Ht 177.8 cm; Wt 114.3 kg
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
[2018-10-15] MEDS ORDERED: ONDANSETRON 4 MG INJ IV STA ×2 (01:51→08:19)
[2018-10-15] MEDS ORDERED: HYDROmorphONE 0.5 MG/0.5 ML SYG IV STA ×2 (01:51→04:17)
[2018-10-15] MEDS ORDERED: KETOROLAC 30 MG INJ IV ONE (03:48)
[2018-10-15] MEDS ORDERED: PIPER-TAZO 3.375 GM IV (PMX) 100 ML IVPB ONE (04:30)
[2018-10-15] MEDS ORDERED: LORAZEPAM 2 MG INJ IV ONE (05:00)
[2018-10-15] MEDS ORDERED: HYDROmorphONE 1 MG/ML SYG IV STA (08:19)
[2018-10-15 09:35] VITALS: BP 152/92; PULSE 94; RESP 17
== END 2018-10-15 09:35 | disposition left against medical advice (07) ==
LOC: E/R 01:05
DX: K56.609 Unspecified intestinal obstruction, unspecified as to partial versus complete obstruction (principal); K92.0 Hematemesis
CPT/HCPCS: 71045; 74176; 80053; 80307; 81003; 83690; 84484; 85025; 85610; 85730; 86850; 86900; 86901; 93005; J1170; J2060; J2405; J2543; 36415; 96374; 96375; 96376

== ENCOUNTER 2018-10-15 14:34 | Emergency (ER) | payer SELFPAY ==
[~2018-10-15] VITALS: Wt 90.9 kg
[2018-10-15 14:37] VITALS: BP 139/71; PULSE 112; RESP 20
== END 2018-10-15 19:30 | disposition left against medical advice (07) ==
LOC: E/R 14:34
DX: Z53.21 Procedure and treatment not carried out due to patient leaving prior to being seen by health care provider (principal)

== ENCOUNTER 2018-10-20 13:59 | Emergency (ER) | payer SELFPAY ==
[~2018-10-20] VITALS: Ht 175.3 cm; Wt 112.0 kg
[~2018-10-20 13:59] MED LIST changes: -ALPR0.5T6 PO; -CALC-516 PO; -CEPH-443 PO
[2018-10-20 14:06] VITALS: Ht 175.3 cm; Wt 112.0 kg
[2018-10-20 18:28] VITALS: BP 128/68; PULSE 82; RESP 25
== END 2018-10-20 20:03 | disposition left against medical advice (07) ==
LOC: E/R 13:59
DX: Z53.21 Procedure and treatment not carried out due to patient leaving prior to being seen by health care provider (principal)

== ENCOUNTER 2018-11-01 20:14 | Emergency (ER) | payer OTHER ==
[~2018-11-01] VITALS: Ht 180.3 cm; Wt 109.0 kg
[2018-11-01 20:16] VITALS: Ht 180.3 cm; Wt 109.0 kg
[2018-11-01] MEDS ORDERED: ONDANSETRON 4 MG INJ IV STA ×2 (21:56→23:29)
[2018-11-01] MEDS ORDERED: HYDROmorphONE 0.5 MG/0.5 ML SYG IV STA (21:56)
[2018-11-01] MEDS ORDERED: SOD CHLORIDE 0.9% 500 ML IV STA (21:56)
[2018-11-01] MEDS ORDERED: HYDROmorphONE 2 MG/ML SYG IV STA (23:29)
[2018-11-02] MEDS ORDERED: HYDR-3980 PO (00:01)
[2018-11-02] MEDS ORDERED: ONDA4TAB14 PO (00:01)
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
[2018-11-02 00:30] VITALS: BP 135/93; PULSE 83; RESP 18
[2018-11-02] MEDS ORDERED: BACITRACIN 0.9 GM OINT ONE (00:31)
[2018-11-03] MEDS ORDERED: DULO20CA17 PO (20:26)
== END 2018-11-02 00:45 | disposition home or self-care (01) ==
LOC: E/R 20:14
DX: R10.9 Unspecified abdominal pain (principal); J44.9 Chronic obstructive pulmonary disease, unspecified; I10 Essential (primary) hypertension; F17.210 Nicotine dependence, cigarettes, uncomplicated; E66.9 Obesity, unspecified; Z68.33 Body mass index [BMI] 33.0-33.9, adult
CPT/HCPCS: 36415; 71045; 74176; 80053; 81003; 83690; 85025; 96374; 96375; 96376; J1170; J2405; J7040; Z7502; Z7610

== ENCOUNTER 2018-11-03 19:00 | Emergency (ER) | payer OTHER ==
[~2018-11-03] VITALS: Ht 177.8 cm; Wt 109.1 kg
[~2018-11-03 19:00] MED LIST changes: +HYDR-3980 PO; +ONDA4TAB14 PO
[2018-11-03 19:31] VITALS: Ht 177.8 cm; Wt 109.1 kg
[2018-11-03] MEDS ORDERED: SOD CHLORIDE 0.9% 1,000 ML IV STA (19:40)
[2018-11-03] MEDS ORDERED: PANTOPRAZOLE 40 MG INJ IV STA (19:40)
[2018-11-03] MEDS ORDERED: DULO20CA17 PO (20:26)
[2018-11-03] MEDS ORDERED: ONDANSETRON 4 MG INJ IV STA (21:55)
[2018-11-03] MEDS ORDERED: HYDROmorphONE 0.5 MG/0.5 ML SYG IV STA (21:55)
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
[2018-11-04 01:12] VITALS: BP 134/98; PULSE 88; RESP 20
== END 2018-11-04 01:14 | disposition home or self-care (01) ==
LOC: E/R 19:00
DX: K56.7 Ileus, unspecified (principal); E66.9 Obesity, unspecified; I10 Essential (primary) hypertension; J44.9 Chronic obstructive pulmonary disease, unspecified
CPT/HCPCS: 36415; 71045; 74176; 80053; 83690; 84484; 85025; 85610; 85730; 86850; 86900; 86901; 93005; 96374; 96375; C9113; J1170; J2405; J7030; Z7502

== ENCOUNTER 2018-11-21 22:00 | Emergency (ER) | payer OTHER ==
[~2018-11-21] VITALS: Wt 110.0 kg
[~2018-11-21 22:00] MED LIST changes: -ALBU18HF INHALATION; -APIX5TAB PO; -BENZ-5 PO; -DOCU-144 PO; +DULO20CA17 PO; -FLUT1AER INHALATION; -FURO-109 PO; -HYDR-3980 PO; -HYDR-4011 PO; -LORA1TAB PO; -METH750T2 PO; -METO-335 PO; -MIRT15TA5 PO; -NICO-546 TD; -OMEP40CA6 PO; -ONDA4TAB14 PO; -OXYC-431 PO; -PRED10TA PO; -SIMV20TA PO
[2018-11-21] MEDS ORDERED: HYDROmorphONE 2 MG/ML SYG IM STA (22:06)
[2018-11-21] MEDS ORDERED: ONDANSETRON (ODT) 4 MG TAB ODT STA (22:06)
[2018-11-21] MEDS ORDERED: SOD CHLORIDE 0.9% 1,000 ML IV STA (22:06)
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
[2018-11-21] MEDS ORDERED: HYDROmorphONE 2 MG/ML SYG IV STA ×2 (23:02→23:59)
[2018-11-21] MEDS ORDERED: LIDOCAINE 2% VISC 15 ML CUP PO ONE (23:30)
[2018-11-21] MEDS ORDERED: LORAZEPAM 2 MG INJ IV ONE (23:30)
[2018-11-22] MEDS ORDERED: ACETAMINOPHEN 325 MG TAB PO PRN (02:00)
[2018-11-22] MEDS ORDERED: ONDANSETRON 4 MG INJ IV PRN (02:00)
[2018-11-22] MEDS ORDERED: DOCU-144 PO (02:33)
[2018-11-22] MEDS ORDERED: FAMO-96 PO (02:33)
[2018-11-22 02:58] VITALS: BP 154/86; PULSE 88; RESP 16
[2018-11-22] MEDS ORDERED: DULO60CA59 PO (12:33)
[2018-11-22] MEDS ORDERED: GABA-526 PO (12:33)
[2018-11-22] MEDS ORDERED: LORA0.5T PO (12:34)
[2018-11-22] MEDS ORDERED: METH750T2 PO (12:35)
[2018-11-22] MEDS ORDERED: POTA10TA37 PO (12:35)
[2018-11-22] MEDS ORDERED: FURO20TA3 PO (12:36)
[2018-11-22] MEDS ORDERED: SIMV20TA PO (12:36)
[2018-11-22] MEDS ORDERED: MIRT15TA5 PO (12:37)
[2018-11-22] MEDS ORDERED: APIX5TAB PO (12:37)
[2018-11-22] MEDS ORDERED: METO-335 PO (12:37)
[2018-11-22] MEDS ORDERED: HYDR-4011 PO (12:38)
[2018-11-22] MEDS ORDERED: OMEP40CA6 PO (12:38)
[2018-11-22] MEDS ORDERED: LISI10TA2 PO (12:39)
== END 2018-11-22 02:59 | disposition left against medical advice (07) ==
LOC: E/R 22:00 → CANBEDREQ 11-22 01:52 → E/R 11-22 02:59
DX: K56.609 Unspecified intestinal obstruction, unspecified as to partial versus complete obstruction (principal); I10 Essential (primary) hypertension; J44.9 Chronic obstructive pulmonary disease, unspecified; F17.210 Nicotine dependence, cigarettes, uncomplicated
CPT/HCPCS: 36415; 71045; 74176; 80053; 80307; 81001; 83690; 84484; 85025; 93005; 96372; 96374; 96375; 96376; J1170; J2060; J7030; Z7502; Z7610

== ENCOUNTER 2018-11-22 09:56 | Emergency (ER) | payer OTHER ==
[~2018-11-22] VITALS: Ht 177.8 cm; Wt 90.0 kg
[~2018-11-22 09:56] MED LIST changes: +DOCU-144 PO; +FAMO-96 PO
[2018-11-22 10:01] VITALS: Ht 177.8 cm; Wt 90.0 kg
[2018-11-22] MEDS ORDERED: HYDROmorphONE 1 MG/ML SYG IV STA ×2 (11:37→13:02)
[2018-11-22] MEDS ORDERED: ONDANSETRON 4 MG INJ IV STA ×2 (11:37→13:02)
[2018-11-22] MEDS ORDERED: IOHEXOL 14.3 MG(I)/ML (ADULT) BTL PO ONE (12:30)
[2018-11-22] MEDS ORDERED: GABA-526 PO (12:33)
[2018-11-22] MEDS ORDERED: DULO60CA59 PO (12:33)
[2018-11-22] MEDS ORDERED: LORA0.5T PO (12:34)
[2018-11-22] MEDS ORDERED: METH750T2 PO (12:35)
[2018-11-22] MEDS ORDERED: POTA10TA37 PO (12:35)
[2018-11-22] MEDS: BARIUM SULF 2% 450 ML BTL (BERRY SMOOTHIE) PO ONE ×2 (12:36→14:53)
[2018-11-22] MEDS ORDERED: FURO20TA3 PO (12:36)
[2018-11-22] MEDS ORDERED: SIMV20TA PO (12:36)
[2018-11-22] MEDS ORDERED: METO-335 PO (12:37)
[2018-11-22] MEDS ORDERED: MIRT15TA5 PO (12:37)
[2018-11-22] MEDS ORDERED: APIX5TAB PO (12:37)
[2018-11-22] MEDS ORDERED: OMEP40CA6 PO (12:38)
[2018-11-22] MEDS ORDERED: HYDR-4011 PO (12:38)
[2018-11-22] MEDS ORDERED: LISI10TA2 PO (12:39)
[2018-11-22] MEDS ORDERED: LORAZEPAM 2 MG INJ IV ONE (15:00)
[2018-11-22] MEDS ORDERED: DIPHENHYDRAMINE 50 MG INJ IV ONE (15:00)
[2018-11-22 16:45] VITALS: BP 161/88; PULSE 99; RESP 18
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
== END 2018-11-22 17:14 | disposition short-term general hospital (02) ==
LOC: E/R 09:56
DX: K56.699 Other intestinal obstruction unspecified as to partial versus complete obstruction (principal); I10 Essential (primary) hypertension; J44.9 Chronic obstructive pulmonary disease, unspecified; E66.9 Obesity, unspecified; Z68.28 Body mass index [BMI] 28.0-28.9, adult; Z87.891 Personal history of nicotine dependence
CPT/HCPCS: 80053; 82150; 83690; 85025; 85610; 85730; 96374; 96375; 96376; J1170; J1200; J2060; J2405; Z7502; Z7610

== ENCOUNTER 2018-11-24 14:58 | Emergency (ER) | payer OTHER ==
[~2018-11-24] VITALS: Wt 90.0 kg
[~2018-11-24 14:58] MED LIST changes: +APIX5TAB PO; -DULO20CA17 PO; +DULO60CA59 PO; +FURO20TA3 PO; +HYDR-4011 PO; +LISI10TA2 PO; +LORA0.5T PO; +METH750T2 PO; +METO-335 PO; +MIRT15TA5 PO; +OMEP40CA6 PO; +POTA10TA37 PO; +SIMV20TA PO
--- NOTE | 2018-11-24 15:22 | QN ---
Documentation Comment Patient here with chief complaint of abdominal pain. Patient was seen imm ediately upon arrival as he arrived by ambulance. Medical screening exam was initiated. The patient will be sent to triage for vital signs will be seen by another provider. PAVEL STRONG MD November 24, 2018 15:22
[2018-11-24 17:00] VITALS: BP 146/84; PULSE 74; RESP 16
[2018-11-24] MEDS ORDERED: SOD CHLORIDE 0.9% 1,000 ML IV STA (17:10)
[2018-11-24] MEDS ORDERED: BARIUM SULF 2% 450 ML BTL (BERRY SMOOTHIE) PO STA (17:10)
[2018-11-24] MEDS ORDERED: ONDANSETRON 4 MG INJ IV STA (17:10)
[2018-11-24] MEDS ORDERED: IOHEXOL 14.3 MG(I)/ML (ADULT) BTL PO ONE (17:30)
[2018-11-24] MEDS ORDERED: DIPHENHYDRAMINE 50 MG INJ IV ONE (17:30)
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
== END 2018-11-24 19:00 | disposition left against medical advice (07) ==
LOC: E/R 14:58
DX: R10.9 Unspecified abdominal pain (principal); E66.9 Obesity, unspecified; I10 Essential (primary) hypertension; J44.9 Chronic obstructive pulmonary disease, unspecified; Z79.01 Long term (current) use of anticoagulants
CPT/HCPCS: 93005; J7030; Z7502

== ENCOUNTER 2018-12-23 14:21 | Emergency (ER) | payer OTHER ==
[~2018-12-23] VITALS: Ht 177.8 cm; Wt 102.0 kg
[2018-12-23 14:25] VITALS: Ht 177.8 cm; Wt 102.0 kg
[2018-12-23] MEDS ORDERED: ONDANSETRON (ODT) 4 MG TAB ODT STA (16:28)
[2018-12-23] MEDS ORDERED: HYDROCODONE/APAP (10/325) TAB PO ONE (16:30)
[2018-12-23 16:40] VITALS: BP 139/83; PULSE 88; RESP 16
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
== END 2018-12-23 16:40 | disposition home or self-care (01) ==
LOC: E/R 14:21
DX: R10.84 Generalized abdominal pain (principal); J44.9 Chronic obstructive pulmonary disease, unspecified; I10 Essential (primary) hypertension; E66.9 Obesity, unspecified; Z79.01 Long term (current) use of anticoagulants; Z68.32 Body mass index [BMI] 32.0-32.9, adult; Z87.891 Personal history of nicotine dependence
CPT/HCPCS: Z7502; Z7610; 99283

== ENCOUNTER 2019-02-25 00:01 | Emergency (ER) | payer OTHER ==
[~2019-02-25] VITALS: Ht 167.6 cm; Wt 75.0 kg
[~2019-02-25 00:01] MED LIST changes: +ALPR0.254 PO; +DOCU-216 PO; +ONDA4TAB14 PO
[2019-02-25 00:05] VITALS: Ht 167.6 cm; Wt 75.0 kg
[2019-02-25] MEDS ORDERED: FAMOTIDINE 20 MG INJ IV STA (02:11)
[2019-02-25] MEDS ORDERED: METOCLOPRAMIDE 10 MG INJ IV STA (02:11)
[2019-02-25] MEDS ORDERED: LIDOCAINE/MYLANTA 40 ML BTL PO STA (02:11)
[2019-02-25] MEDS ORDERED: HYDROmorphONE 2 MG/ML SYG IV STA (04:52)
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
[2019-02-25 05:40] VITALS: BP 138/82; PULSE 81; RESP 17
== END 2019-02-25 05:41 | disposition home or self-care (01) ==
LOC: E/R 00:01
DX: R10.12 Left upper quadrant pain (principal); I10 Essential (primary) hypertension; R11.2 Nausea with vomiting, unspecified; Z87.891 Personal history of nicotine dependence; Z79.01 Long term (current) use of anticoagulants
CPT/HCPCS: 36415; 74176; 80053; 83690; 85025; 96374; 96375; J1170; J2765; Z7502; Z7610